=== PATIENT | male | born 1995 | race African-American/Black ===

== ENCOUNTER 2018-09-03 11:21 | Inpatient (IN) ==
[2018-09-03] MEDS ORDERED: SODIUM CHLORIDE 0.9% 1000ML 1,000 ML IV SCH ×2 (11:59→14:15)
--- NOTE | 2018-09-03 12:08 | Emergency Department Note ---
History of Present Illness General Chief complaint: Flank Pain Stated complaint: STOMACH PAIN ON THE LOWER RIGHT Time Seen by Provider: 09/03/18 11:44 History of Present Illness Maximum Pain Intensity: 6 Patient is a generally healthy 22-year-old male who presents the emergency department for evaluation of right lower quadrant abdominal pain x2 to 3 days. He states the pain started over the weekend, which was tolerable, however the pain markedly worsened this morning. He states the pain is located in the right lower quadrant and does not radiate. He rates his discomfort a 6/10. He states that he has been nauseous and vomited twice today with the increased pain. He denies hematemesis. No fever or chills. His bowel movements have been normal, he denies diarrhea. He reports he has been eating normally through the weekend. He denies any sick contacts. He reports a history of EGD for stomach ulcers. He is a student from [employer], taking classes at [employer] over the summer. He arrived here about one month ago. Home Medications Home Medications Medication Instructions Recorded Confirmed Type No Known Home Medications 09/03/18 09/03/18 History Allergies Allergy/AdvReac Type Severity Reaction Status Date / Time No Known Allergies Allergy Verified 09/03/18 12:18 Past Med/Surg History Medical History Stomach ulcer (Resolved) Surgical History No history of previous surgery (Chronic) History of esophagogastroduodenoscopy (EGD) (Resolved) Social History Current Living Situation: Family current occupational status: student Feels Safe at Home: Yes Smoking Status: Former smoker Review of Systems A total of 10 systems reviewed and were otherwise negative Physical Exam Vital Signs Vital Signs - 24 hr 09/03/18 11:28 09/03/18 14:21 Temperature 36.9 C Temperature Source Oral Sepsis Recent Fever Within 48 Hours No Sepsis New/Unexplained Change in Mental Status No Sepsis Action Taken by Nursing No Action Required Pulse Rate 81 Pulse Rate [Finger] 76 Pulse Strength Normal Respiratory Rate 20 17 Respiratory Effort / Characteristics Non-Labored Spontaneous Respiratory Depth Normal Blood Pressure 155/108 H Blood Pressure [Right Arm] 140/89 Blood Pressure Mean 123 Blood Pressure Mean [Right Arm] 106 Blood Pressure Position Sitting Pulse Oximetry 96 100 Oxygen Delivery Method Room Air Room Air CONSTITUTIONAL: Patient is a well-appearing 22-year-old male who is awake and alert and in no acute distress. EYES: Pupils equal, round, reactive to light and accommodation. EOMs intact without nystagmus. Sclera are anicteric. ENT: Tympanic membranes intact, with normal landmarks. External canals are c lear. Oral and nasopharynx are clear. Mucous membranes are moist, no lesions, tongue and gums appear normal. NECK: Supple without lymphadenopathy. No thyromegaly. No meningeal signs. Full active range of motion without discomfort. CARDIOVASCULAR: Regular rate and rhythm, with normal S1 and S2, no murmur or gallop or rub is heard. Peripheral pulses easily palpable. RESPIRATORY: Breath sounds equal and clear to auscultation without wheezes, rales, or rhonchi heard. Full and equal chest expansion without accessory muscle use or retractions. ABDOMEN: Bowel sounds are present. Abdomen is soft, scaphoid, tender to percussion and palpation in the right lower quadrant with voluntary guarding. No rebound or referred rebound tenderness. INTEGUMENTARY: No lesions or rash, normal skin turgor. LYMPH: No lymphadenopathy. Course The patient was seen and assessed as above. He has no old records at this facility for review. He presents the emergency department for evaluation of right lower quadrant abdominal pain with associated nausea and vomiting that began today. IV lock was initiated. He was offered medication for discomfort and nausea, but declined. He was hydrated with normal saline solution. CBC with differential, CMP, lipase and urinalysis were collected. CT scan of the abdomen pelvis with IV contrast was ordered. The patient laboratory studies revealed a normal white count at 7500, no left shift or bandemia. H&H is normal. Electrolytes are within normal limits. Renal functions are not elevated. Transaminases and lipase are normal. Urine was clear. CT scan of the abdomen and pelvis with IV contrast noted acute uncomplicated appendicitis, with a dilated appendix with mucosal hyperemia measuring 7 mm in diameter. There is no evidence for necrosis, extraluminal gas or adjacent fluid collection. No bowel obstruction. The patient was reassessed. He was made aware of the results of his laboratory studies and his CT scan. Surgical consult was placed. Patient was discussed with Joycelyn Adkins PA-C with General Surgery. Patient will be taken to the OR by Dr. Li. Please refer to surgical H&P for further information. Administered Medications Ioversol (Optiray 320 100ml) 93 ml IV ONCE PRN PRN Reason: Interaction Checking Stop: 09/07/18 13:20 Last Admin: 09/03/18 13:21 Dose: 93 ml Documented by: [id number] Discontinued Medications Sodium Chloride (Nss 1000ml) 1,000 mls @ 999 mls/hr IV .Q1H1M OMAR Stop: 09/03/18 12:59 Last Infusion: 09/03/18 13:28 Dose: 0 mls/hr Documented by: [id number] Admin: 09/03/18 12:17 Dose: 999 mls/hr Documented by: [id number] Cefoxitin Sodium 2,000 mg/ (Dextrose) 60 mls @ 100 mls/hr IV PREOP ONE Stop: 09/03/18 15:05 Last Admin: 09/03/18 14:55 Dose: 100 mls/hr Documented by: [id number] Medical Decision Making Differential Diagnosis Differential diagnoses entertained included UTI, pyelonephritis, renal colic, appendicitis, hernia, shingles, mesenteric adenitis, infectious versus inflammatory colitis/enteritis, musculoskeletal pain, among others. Medical Records Attestation: I reviewed the patient's medical records. Home Medications Current Medication List: was personally reviewed by me Laboratory Data Attestation: I reviewed the patient's lab results. Result diagrams: 09/03/18 12:11 09/03/18 12:11 Lab Results 09/03/18 09/03/18 09/03/18 Range/Units 12:10 12:11 12:11 WBC 7.52 (4.8-10.8) K/uL RBC 5.77 (4.7-6.1) M/uL Hgb 16.0 (14.0-18.0) g/dL Hct 44.5 (42-52) % MCV 77.1 L (80-100) fL MCH 27.7 (25-34) pg MCHC 36.0 (32-36) g/dL RDW Std Deviation 35.9 L (36.4-46.3) fL RDW Coeff of Delbert 12.8 (11.5-14.5) % Plt Count 230 (130-400) K/uL MPV 9.7 (7.4-10.4) fL Immature Gran % (Auto) 0.3 % Neut % (Auto) 65.8 % Lymph % (Auto) 23.8 % [place] % (Auto) 7.4 % Eos % (Auto) 2.4 % Baso % (Auto) 0.3 % Immature Gran # (Auto) 0.02 (0.00-0.02) K/uL Neut # (Auto) 4.95 (1.4-6.5) K/uL Lymph # (Auto) 1.79 (1.2-3.4) K/uL [place] # (Auto) 0.56 (0.11-0.59) K/uL Eos # (Auto) 0.18 (0-0.5) K/uL Baso # (Auto) 0.02 (0-0.2) K/uL Sodium 137 (136-145) mmol/L Potassium 3.6 (3.5-5.1) mmol/L Chloride 102 (98-107) mmol/L Carbon Dioxide 27 (21-32) mmol/L Anion Gap 8.0 (3-11) BUN 13 (7-18) mg/dl Creatinine 0.97 (0.6-1.4) mg/dl Est Cr Clr Drug Dosing 111.7 ml/min Est GFR ( Amer) 127.9 Est GFR (Non-Af Amer) 110.4 BUN/Creatinine Ratio 13.5 (10-20) Glucose 108 H (70-99) mg/dl Calcium 10.2 H (8.5-10.1) mg/dl Total Bilirubin 0.7 (0.2-1) mg/dl AST 18 (15-37) U/L ALT 38 (12-78) U/L Alkaline Phosphatase 77 (45-117) U/L Total Protein 8.2 (6.4-8.2) gm/dl Albumin 4.3 (3.4-5.0) gm/dl Globulin 3.9 (2.5-4.0) gm/dl Albumin/Globulin Ratio 1.1 (0.9-2) Lipase 74 (73-393) U/L Urine Color Yellow Urine Appearance Clear (Clear) Urine pH 8.5 H (4.5-7.5) Ur Specific [place] 1.016 (1.000-1.030) Urine Protein Negative (Negative) Urine Glucose (UA) Negative (Negative) Urine Ketones Negative (Negative) Urine Blood Negative (Negative) Urine Nitrite Negative (Negative) Urine Bilirubin Negative (Negative) Urine Urobilinogen Negative (Negative) Ur Leukocyte Esterase Negative (Negative) Imaging Data Attestation: I personally reviewed and interpreted this imaging study as follows: Radiologist's Impression: CT abd pelvis IV con only CLINICAL HISTORY: 22 years-old Male presenting with RLQ PAIN N/V X 3 DAYS. TECHNIQUE: Multidetector CT of the abdomen and pelvis was performed after the administration of intravenous contrast. IV contrast: 3 mL of Optiray 320. One or more dose lowering techniques were used consistent with the principles of ALARA (as low as reasonably achievable), including automatic exposure control, mA or kV adjustment to individual patient size, and/or use of iterative reconstructi on. COMPARISON: None. CT DOSE (mGy.cm): The estimated cumulative dose is 310.90 mGy.cm. FINDINGS: Rod And Tube Straightener topogram: Unremarkable. Lung bases: Normal heart size. No pericardial or pleural effusion. No focal infiltrate or nodule at the lung bases. Liver: Normal morphology. No liver lesion. Patent hepatic vasculature. Biliary: No intrahepatic or extrahepatic biliary ductal dilatation. Normal gal lbladder. Pancreas: Normal. Spleen: Normal. Adrenal glands: Normal. Kidneys and ureters: Normal. No hydronephrosis. Bladder: Normal. Pelvic organs: Prostate and seminal vesicles normal. Bowel: Dilated appendix with mucosal hyperemia. The appendiceal diameter measures 7 mm. There is periappendiceal fat infiltration greatest at the appendiceal base and midportion. There is no bharath discontinuity of mucosal enhancement to suggest necrosis. No extraluminal gas or adjacent fluid collection. No bowel obstruction. Peritoneal cavity: No free fluid or intraperitoneal gas. Lymph nodes: No enlarged lymph nodes in the abdomen or pelvis. Vasculature: Aorta and IVC patent and normal in caliber. Abdominal wall: Normal. Musculoskeletal: Normal. IMPRESSION: 1. Acute uncomplicated appendicitis. Surgical consultation is necessary. The report will be called/faxed according to standard departmental protocol for a critical finding. Blood Pressure Blood Pressure Findings: Normal blood pressure Blood Pressure Disposition: did not require urgent referral MDM Narrative See ED Course. Impression & Plan Acute appendicitis Discharge Plan Visit Data Chief Complaint: Flank Pain Stated Complaint: STOMACH PAIN ON THE LOWER RIGHT ED Provider: Larry Armstrong ED Midlevel Provider: Chelsea Adame Discharge Problem: Acute appendicitis Patient Disposition: Still a Patient Discharge Instructions Interventions: ED Discharge Assessment Last Done: 09/03/18 14:22 Discharge Problem: Acute appendicitis Qualifiers: Acute appendicitis type: with localized peritonitis Appendicitis gangrene presence: without gangrene Appendicitis perforation presence: without perforation Appendicitis abscess presence: without abscess Qualified Code(s): K35.30 - Acute appendicitis with localized peritonitis, without perforation or gangrene
[2018-09-03 12:23] LABS: Basophils # (auto) 0.02 K/uL (0-0.2); Basophils % (auto) 0.3 %; Eosinophils # (auto) 0.18 K/uL (0-0.5); Eosinophils % (auto) 2.4 %; Hematocrit (blood only) 44.5 % (42-52); Immature Granulocytes # (auto) 0.02 K/uL (0.00-0.02); Immature Granulocytes % (auto) 0.3 %; Lymphocytes # (auto) 1.79 K/uL (1.2-3.4); Lymphocytes % (auto) 23.8 %; Mean Corpuscular Volume 77.1 fL (80-100); Mean Platelet Volume 9.7 fL (7.4-10.4); Monocytes # (auto) 0.56 K/uL (0.11-0.59); Monocytes % (auto) 7.4 %; Neutrophils # (auto) 4.95 K/uL (1.4-6.5); Neutrophils % (auto) 65.8 %; Platelet Count 230 K/uL (130-400); RDW Coefficient of Variation 12.8 % (11.5-14.5); RDW Standard Deviation 35.9 fL (36.4-46.3); Red Blood Count 5.77 M/uL (4.7-6.1); White Blood Count 7.52 K/uL (4.8-10.8)
[2018-09-03 12:24] LABS: Appearance Urine Clear (Clear); Bilirubin Urine Negative (Negative); Blood Urine Negative (Negative); Color Urine Yellow; Glucose Urine UA Negative (Negative); Ketones Urine Negative (Negative); Leukocyte Esterase Urine Negative (Negative); Nitrite Urine Negative (Negative); Protein Urine Negative (Negative); Specific Gravity Urine 1.016 (1.000-1.030); Urobilinogen Urine Negative (Negative); pH Urine 8.5 (4.5-7.5)
[2018-09-03 12:41] LABS: Albumin Level 4.3 gm/dl (3.4-5.0); BUN Creatinine Ratio 13.5 (10-20); Calcium 10.2 mg/dl (8.5-10.1); Creatinine Clr Calc Pharmacy 111.7 ml/min; Est GFR (African American) 127.9; Est GFR (Non-African American) 110.4; Potassium 3.6 mmol/L (3.5-5.1)
[2018-09-03 12:46] LABS: Albumin Globulin Ratio 1.1 (0.9-2); Bilirubin,Total 0.7 mg/dl (0.2-1); Globulin 3.9 gm/dl (2.5-4.0); Total Protein 8.2 gm/dl (6.4-8.2)
[2018-09-03] MEDS ORDERED: IOVERSOL 100ml IV PRN (13:21)
--- NOTE | 2018-09-03 13:36 | CT Scan Report ---
CT abd pelvis IV con only CLINICAL HISTORY: 22 years-old Male presenting with RLQ PAIN N/V X 3 DAYS. TECHNIQUE: Multidetector CT of the abdomen and pelvis was performed after the administration of intra venous contrast. IV contrast: 3 mL of Optiray 320. One or more dose lowering techniques were used con sistent with the principles of ALARA (as low as reasonably achievable), including automatic exposure control, mA or kV adjustment to individual patient size, and/or use of iterative reconstruction. COMPARISON: None. CT DOSE (mGy.cm): The estimated cumulative dose is 310.90 mGy.cm. FINDINGS: Sealer Aircraft topogram: Unremarkable. Lung bases: Normal heart size. No pericardial or pleural effusion. No focal infiltrate or nodule at t he lung bases. Liver: Normal morphology. No liver lesion. Patent hepatic vasculature. Biliary: No intrahepatic or extrahepatic biliary ductal dilatation. Normal gallbladder. Pancreas: Normal. Spleen: Normal. Adrenal glands: Normal. Kidneys and ureters: Normal. No hydronephrosis. Bladder: Normal. Pelvic organs: Prostate and seminal vesicles normal. Bowel: Dilated appendix with mucosal hyperemia. The appendiceal diameter measures 7 mm. There is kate appendiceal fat infiltration greatest at the appendiceal base and midportion. There is no bharath disco ntinuity of mucosal enhancement to suggest necrosis. No extraluminal gas or adjacent fluid collection . No bowel obstruction. Peritoneal cavity: No free fluid or intraperitoneal gas. Lymph nodes: No enlarged lymph nodes in the abdomen or pelvis. Vasculature: Aorta and IVC patent and normal in caliber. Abdominal wall: Normal. Musculoskeletal: Normal. IMPRESSION: 1. Acute uncomplicated appendicitis. Surgical consultation is necessary. The report will be called/faxed according to standard departmental protocol for a critical finding. Electronically signed by: Jaxon Griffith M.D. 09/03/2018 1:35 PM
--- NOTE | 2018-09-03 14:08 | History & Physical Report ---
Date of Service September 03, 2018 Assessment & Plan (1) Acute appendicitis: Pt is a 22 yo male who presents with acute appendicitis based on clinical history and physical as well as CT scan. Discussed treatment options, including antibiotics alone vs antibiotics and appendectomy. Discussed risks and benefits of these options. Decision was made to proceed with surgery. - Admit to General Surgery - OR today for laparoscopic, possible open, appendectomy, possible bowel resection - Analgesia: Tylenol and Ibuprofen; Oxy IR PRN - Incentive Spirometry - Diet: NPO for OR, possible advance post-op - Nausea: Zofran PRN - GI ppx: given history of gastric ulcer, if patient is not started on a diet p ost-op will need prophylaxis - IVF: NSS@ 100 ml/hr - Antibiotics: Cefoxitin - DVT/PE ppx: TEDS, SCDs; start Lovenox post-op - Activity: OOB, Ambulate Risks, benefits, goals, complications, post-op expectations, limitations, and alternatives were discussed with patient. Risks include, but are not limited to, pain, scarring, bleeding and associated problems, infection, heart attack, breathing problems including required intubation post-operatively, stroke, blood clots including deep vein thrombosis and pulmonary embolism, injury to surrounding tissues or organs, , need for additional procedures, injury to bladder, abscess formation, staple line leak, anastomotic leak, and hernia. All questions were answered to apparent satisfaction and the patient freely signed consent. Present on Admission?: Yes History of Present Illness Chief Complaint: Abdominal Pain Primary Care Provider: NO PCP Corazon Hutchison is a 22 yo male who presents with a two day history of right lower quadrant abdominal pain. Pain is unchanged in location, but worsened today. He also had two episodes of emesis today. Denies fever and chills. Denies any prior similar symptoms. Denies prior surgical history. He has a history of peptic ulcers diagnosed on EGD, and states most recent treatment was in 2016. Allergies Allergy/AdvReac Type Severity Reaction Status Date / Time No Known Allergies Allergy Verified 09/03/18 12:18 Home Medications Home Medications Medication Instructions Recorded Confirmed Type No Known Home Medications 09/03/18 09/03/18 History Past Med/Surg History Medical History Stomach ulcer (Resolved) Surgical History No history of previous surgery (Chronic) History of esophagogastroduodenoscopy (EGD) (Resolved) Social History Feels Safe at Home: Yes Smoking Status: Former smoker Review of Systems Constitutional: no fever, no chills, no sweats and no weakness Eyes: no eye pain no change in vision Ear, Nose, Mouth, Throat: no ear pain, no ear discharge, no dizziness, no nasal congestion, no nasal discharge and no sore throat Respiratory: no cough and no dyspnea Cardiovascular: no chest pain, no dyspnea on exertion and no palpitations Gastrointestinal: + abdominal pain and + vomiting see HPI Genitourinary: no dysuria, no urinary frequency, no urinary hesitancy and no urinary incontinence Musculoskeletal: no back pain and no joint pain Integumentary: no rash Physical Exam Constitutional: well developed and well nourished; no acute distress Eyes: PERRL, conjunctivae normal, anicteric sclerae ENMT: external ear and nose normal, oropharynx normal Neck: normal visual inspection Respiratory: normal respiratory effort Cardiovascular: Rate/Rhythm: regular rate and regular rhythm Gastrointestinal (Abdomen): Soft, non-distended, RLQ tenderness, no rebound or guarding Musculoskeletal: Head/Neck/Chest: normocephalic and head atraumatic no edema Skin: no rashes, warm and dry Neurologic: alert Results & Data Vital Signs (Past 12 Hours) Vital Signs Temp Pulse Resp BP Pulse Ox 09/03/18 11:28 36.9 C 81 20 155/108 H 96 Laboratory Results 09/03/18 09/03/18 09/03/18 Range/Units 12:11 12:11 12:10 WBC 7.52 (4.8-10.8) K/uL RBC 5.77 (4.7-6.1) M/uL Hgb 16.0 (14.0-18.0) g/dL Hct 44.5 (42-52) % MCV 77.1 L (80-100) fL MCH 27.7 (25-34) pg MCHC 36.0 (32-36) g/dL RDW Std Deviation 35.9 L (36.4-46.3) fL RDW Coeff of Delbert 12.8 (11.5-14.5) % Plt Count 230 (130-400) K/uL MPV 9.7 (7.4-10.4) fL Immature Gran % (Auto) 0.3 % Neut % (Auto) 65.8 % Lymph % (Auto) 23.8 % [place] % (Auto) 7.4 % Eos % (Auto) 2.4 % Baso % (Auto) 0.3 % Immature Gran # (Auto) 0.02 (0.00-0.02) K/uL Neut # (Auto) 4.95 (1.4-6.5) K/uL Lymph # (Auto) 1.79 (1.2-3.4) K/uL [place] # (Auto) 0.56 (0.11-0.59) K/uL Eos # (Auto) 0.18 (0-0.5) K/uL Baso # (Auto) 0.02 (0-0.2) K/uL Sodium 137 (136-145) mmol/L Potassium 3.6 (3.5-5.1) mmol/L Chloride 102 (98-107) mmol/L Carbon Dioxide 27 (21-32) mmol/L Anion Gap 8.0 (3-11) BUN 13 (7-18) mg/dl Creatinine 0.97 (0.6-1.4) mg/dl Est Cr Clr Drug Dosing 111.7 ml/min Est GFR ( Amer) 127.9 Est GFR (Non-Af Amer) 110.4 BUN/Creatinine Ratio 13.5 (10-20) Glucose 108 H (70-99) mg/dl Calcium 10.2 H (8.5-10.1) mg/dl Total Bilirubin 0.7 (0.2-1) mg/dl AST 18 (15-37) U/L ALT 38 (12-78) U/L Alkaline Phosphatase 77 (45-117) U/L Total Protein 8.2 (6.4-8.2) gm/dl Albumin 4.3 (3.4-5.0) gm/dl Globulin 3.9 (2.5-4.0) gm/dl Albumin/Globulin Ratio 1.1 (0.9-2) Lipase 74 (73-393) U/L Urine Color Yellow Urine Appearance Clear (Clear) Urine pH 8.5 H (4.5-7.5) Ur Specific [place] 1.016 (1.000-1.030) Urine Protein Negative (Negative) Urine Glucose (UA) Negative (Negative) Urine Ketones Negative (Negative) Urine Blood Negative (Negative) Urine Nitrite Negative (Negative) Urine Bilirubin Negative (Negative) Urine Urobilinogen Negative (Negative) Ur Leukocyte Esterase Negative (Negative) Diagnostic Findings (09/03/18) CT Abdomen/Pelvis: FINDINGS: Set Up Worker topogram: Unremarkable. Lung bases: Normal heart size. No pericardial or pleural effusion. No focal infiltrate or nodule at the lung bases. Liver: Normal morphology. No liver lesion. Patent hepatic vasculature. Biliary: No intrahepatic or extrahepatic biliary ductal dilatation. Normal gallbladder. Pancreas: Normal. Spleen: Normal. Adrenal glands: Normal. Kidneys and ureters: Normal. No hydronephrosis. Bladder: Normal. Pelvic organs: Prostate and seminal vesicles normal. Bowel: Dilated appendix with mucosal hyperemia. The appendiceal diameter measures 7 mm. There is periappendiceal fat infiltration greatest at the appendiceal base and midportion. There is no bharath discontinuity of mucosal enhancement to suggest necrosis. No extraluminal gas or adjacent fluid collection. No bowel obstruction. Peritoneal cavity: No free fluid or intraperitoneal gas. Lymph nodes: No enlarged lymph nodes in the abdomen or pelvis. Vasculature: Aorta and IVC patent and normal in caliber. Abdominal wall: Normal. Musculoskeletal: Normal. IMPRESSION: 1. Acute uncomplicated appendicitis. Surgical consultation is necessary. (1) Acute appendicitis Acute appendicitis type: with localized peritonitis Appendicitis abscess presence: without abscess Appendicitis gangrene presence: without gangrene Appendicitis perforation presence: without perforation Qualified Code(s): K35.30 - Acute appendicitis with localized peritonitis, without perforation or gangrene
[2018-09-03] MEDS ORDERED: OXYCODONE HCL IR 5 MG TAB (IMMEDIATE RELEASE) PO PRN ×2 (14:11)
[2018-09-03] MEDS ORDERED: ACETAMINOPHEN 325 MG TAB PO PRN (14:11)
[2018-09-03] MEDS ORDERED: HYDROmorphone INJ 1 MG/ML SYRINGE IV PRN ×3 (14:11→15:08)
[2018-09-03] MEDS ORDERED: ONDANSETRON INJ 2 MG/ML 2 ML VIAL IV PRN ×3 (14:11→15:08)
[2018-09-03] MEDS ORDERED: fentaNYL citrate 100 MCG/2 ML VIAL IV PRN ×2 (14:13→15:08)
[2018-09-03] MEDS ORDERED: ATROPINE SULFATE 0.1 MG/ML 10ML SYR IV PRN ×2 (14:13→15:08)
[2018-09-03] MEDS ORDERED: ePHEDrine sulfate 50 MG/ML AMP IV PRN ×2 (14:13→15:08)
--- NOTE | 2018-09-03 14:14 | Anesthesiology Consultation ---
Date of Service September 03, 2018 History Surgery Operation Date: 09/03/18 11:30 Proposed Procedures p Laparoscopic Appendectomy - Wandy Adamson MD Height/Weight Height: 5 ft 7 in Weight: 77.3 kg Allergies Allergy/AdvReac Type Severity Reaction Status Date / Time No Known Allergies Allergy Verified 09/03/18 12:18 Medications Home Medications Medication Instructions Recorded Confirmed Last Taken No Known Home Medications 09/03/18 09/03/18 Unknown Active Medications Generic Name Dose Route Start Last Admin Trade Name Freq PRN Reason Stop Dose Admin Ioversol 93 ml 09/03/18 13:21 09/03/18 13:21 Optiray 320 100ml IV 09/07/18 13:20 93 ml ONCE PRN Administration Interaction Checking Past Medical History Medical History Stomach ulcer (Resolved) Past Surgical History Surgical History No history of previous surgery (Chronic) History of esophagogastroduodenoscopy (EGD) (Resolved) Past Anesthesia History No Hx of Anesthesia Complications and No Family Hx of Anesthesia Complications History of PONV No Hx of PONV and No Hx of Motion Sickness Social History Smoking Status: Former smoker Physical Exam Vital Signs Last Vital Signs Temp 36.9 C 09/03/18 11:28 Pulse 81 09/03/18 11:28 Resp 20 09/03/18 11:28 BP 155/108 H 09/03/18 11:28 Pulse Ox 96 09/03/18 11:28
[2018-09-03] MEDS ORDERED: SUCCINYLCHOLINE CHLORIDE 20 MG/ML 10 ML VIAL ONE (14:16)
[2018-09-03] MEDS ORDERED: GLYCOPYRROLATE 0.2 MG/ML VIAL ONE (14:16)
[2018-09-03] MEDS ORDERED: DEXAMETHASONE SOD INJ 4 MG/ML VIAL ONE (14:16)
[2018-09-03] MEDS ORDERED: ROCURONIUM BROMIDE 10 MG/ML 5 ML VIAL ONE (14:16)
[2018-09-03] MEDS ORDERED: MIDAZOLAM HCL 1 MG/ML 2ML VIAL ONE (14:16)
[2018-09-03] MEDS ORDERED: LIDOCAINE HCL 2% 2 ML VIAL/AMP(20MG/ML) INFIL ONE (14:16)
[2018-09-03] MEDS ORDERED: NEOSTIGMINE METHYLSULFATE 5 MG/5 ML SYR ONE (14:16)
[2018-09-03] MEDS ORDERED: ONDANSETRON INJ 2 MG/ML 2 ML VIAL ONE (14:16)
[2018-09-03] MEDS ORDERED: PROPOFOL IV EMULSION 10 MG/ML 20 ML VIAL IV ONE (14:16)
[2018-09-03] MEDS ORDERED: fentaNYL citrate 100 MCG/2 ML VIAL ONE ×3 (14:17→15:16)
[2018-09-03] MEDS ORDERED: cefOXitin 2,000 MG in DEXTROSE 5% 50 ML IV ONE (14:30)
[2018-09-03] MEDS ORDERED: SODIUM CHLORIDE 0.9% 10ML FLUSH IV ONE (14:31)
[2018-09-03] MEDS ORDERED: ATROPINE SULFATE 0.1 MG/ML 10ML SYR IV ONE (14:31)
[2018-09-03] MEDS ORDERED: BUPIVACAINE 0.25% 30 ML VIAL ONE (14:39)
[2018-09-03] MEDS ORDERED: EPINEPHrine INJ 1 MG/ML AMP ONE (14:39)
[2018-09-03] MEDS ORDERED: PROMETHAZINE HCL 12.5 MG in SODIUM CHLORIDE 0.9% 50 ML IV PRN (15:08)
[2018-09-03] MEDS ORDERED: ESMOLOL HCL INJ 10 MG/ML 10ML VIAL IV ONE (15:30)
--- NOTE | 2018-09-03 16:32 | Post Operative Brief Note ---
Immediate Post Op Note v1 Date of Surgery September 03, 2018 Pre & Post Diagnosis Operation Date: 09/03/18 11:30 Pre-Op Diagnosis: Acute Appendicitis Post-Op Diagnosis: Acute Appendicitis Procedure Operation Date: 09/03/18 11:30 Actual Procedures p Laparoscopic Appendectomy(Not Applicable) - Wandy Adamson MD Surgeon Wandy Adamson MD Spareribs Trimmer Joycelyn Adkins PA-C Estimated Blood Loss 25 Findings See Below Inflamed appendix with filmy adhesions, small amount of free fluid Fluids 1400 ml Crystalloid 600 ml Urine Specimens Appendix to Pathology Drains Dickerson Catheter (A 16 [place] dickerson catheter was inserted by Jennifer Melvin RN, without difficulty, clear yellow urine obtained, output to be monitored by Anesthesia.) Anesthesia Type General Complications none
--- NOTE | 2018-09-03 16:33 | Operative Report ---
Post Operative Report Pre & Post Diagnosis Operation Date: 09/03/18 11:30 Pre-Op Diagnosis: Acute Appendicitis Post-Op Diagnosis: Acute Appendicitis Procedure Operation Date: 09/03/18 11:30 Actual Procedures p Laparoscopic Appendectomy(Not Applicable) - Wandy Adamson MD Surgeon Wandy Adamson MD Neonatal Specialist Joycelyn Adkins PA-C Estimated Blood Loss 25 Findings See Below Inflamed appendix with filmy adhesions, small amount of free fluid Fluids 1400 ml Crystalloid 600 ml Urine Specimens Appendix to Pathology Anesthesia Type General Complications none Description of Procedure History and Indications: The patient is a 22 year old male who presented with acute appendicitis. Various treatment options were discussed with the patient including treatment with antibiotics alone, antibiotics with immediate appendectomy, and antibiotics with plan for interval appendectomy. Decision was made to proceed with a laparoscopic, possible open, appendectomy, possible bowel resection. Risks, benefits, goals, complications, post-op expectations, limitations, and alternatives were discussed withthe patient and family. Risks include, but are not limited to, pain, scarring, bleeding and associated problems, infection, heart attack, breathing problems including required intubation post-operatively, stroke, blood clots including deep vein thrombosis and pulmonary embolism, injury to surrounding tissues or organs, , need for additional procedures,hernia, leak from staple line, anastomotic leak, injury to bowel and bladder. All questions were answered to apparent satisfaction andthe patientfreely signed consent. Description of Procedure: The patient was taken to the operating room and placed in the supine position. General anesthesia was induced.A dickerson was placed. The patient was prepped and draped in the usual sterile fashion.A timeout washeld confirming the correct patient, procedure, specimens, and necessary equipment.An incision was made below the umbilicus.This was carried down through the perperitoneal fat with electrocautery. Care was taken to ensure there were no adhesions surrounding the entry site.Entry into the peritoneum was confirmed visually and no bowel was noted in the vicinity of the incision. The Dangelo cannula was inserted. The abdomen was insufflated with carbon dioxide. The patient tolerated insufflation well. The laparoscope was inserted and the abdomen inspected. No injuries from initial trocar placement were noted. The patient was placed in Trendelenburg and tilted slightly to the left. Additional trocars were then inserted in the following locations: a 5 mm trocar in thelower midline, with care to avoid injury to the bladder,anda5 mm trocartriangulated in the LLQ. The abdomen was inspected andthere were no inj uries noted from initial trocar placement.The appendix was inflamed and had significant filmy adhesions to the lateral abdominal wall and the cecum. The appendix was mobilized from the pelvis. Inflammatory tissue was dissected free using the harmonic scalpel to mobilize the appendix. The mesoappendix was then sealed and divided with a harmonic scalpel. The base of the appendix was transected with a blue load on the Endo DEBRA stapler. The appendix was placed in anendoscopic retrieval bag. Hemostasis was ensured. The staple line was visualized and was intact. The abdomen was thoroughly irrigated. Secondary trocars were removed under direct visualization. No bleeding was noted.The laparsocope and Dangelo cannula were withdrawn. The specimenswithin theendoscopic retrieval bagwasremoved from the peritoneal cavity and sent to Pathology. A safety pause was held confirming specimens. A drain was placed in the right lower quadrant. The fascia of the midline Dangelo trocar site was close d with a [id number] 0 vicryl suture and two interrupted 0 vycril sutures. The skin was closed with subcuticular sutures of 4-0 Monocryl and Dermabond was applied to the incisions. All counts were reported as correct. Thefoleywas removed. The patient was extubated and transferred to the recovery areain stable condition. I attest to the content of the Intraoperative Record and any orders documented therein. Any exceptions are noted below.
[2018-09-03] MEDS ORDERED: PROPOFOL IV EMULSION 10 MG/ML 100 ML VIAL IV ONE ×2 (17:15→18:57)
[2018-09-03 17:43] LABS: iSTAT Allen Test Pass; iSTAT Arterial Blood Gas HCO3 23 meg/L (19-24); iSTAT Carbon Dioxide 25 mEq/l (24-31); iSTAT Site L Radial
--- NOTE | 2018-09-03 17:47 | XRay Report ---
SINGLE VIEW CHEST CLINICAL HISTORY: Hypoxia. Respiratory failure. FINDINGS: An AP, portable, upright chest radiograph is obtained. No prior studies are available for c omparison at the time of dictation. The examination is degraded by portable technique and patient rot ation. An enteric tube has been placed. The tip projects below the diaphragm over the stomach. An end otracheal tube has been placed. The tip terminates 1.8 cm above the nasima. The cardiomediastinal edy houette is unremarkable. Patchy airspace consolidation is seen throughout the right lung. Airspace co nsolidation is also seen in the left upper lung. Small pleural effusions are noted. No pneumothorax i s seen. The bony thorax is grossly intact. IMPRESSION: 1. Endotracheal and enteric tubes have been placed as detailed above. 2. There is multifocal bilateral airspace consolidation, right greater than left. Correlate clinicall y for evidence of pneumonia/aspiration pneumonitis or less likely pulmonary edema. Radiographic follo w-up to resolution is recommended. 3. Small pleural effusions. Electronically signed by: Kj Hou M.D. 09/03/2018 5:45 PM
--- NOTE | 2018-09-03 17:53 | Anesthesiology Progress Note ---
Date of Service September 03, 2018 Subjective Upon arrival to the PACU (1648) the patient was noticed to be hypoxic. Pt immediately ventilated via ambu bag (0). Pulse was present although pt was bradycardic. Dr Zamudio called and responded promptly. Oral airway and subsequently nasal airway placed to help facilitate ventilation. Pt was extubated in the OR after meeting criteria of head lift sustained ventilation and eye opening. Pt was also thoroughly suctioned, as he presented with a large amount of oral secretions. A bite block was also used at the end of the case but was removed before transport to the PACU. Inthe PACU after O2Sats improved pt began to cough up copious amounts of frothy sputum. Decision made by Dr Zamudio to intubate. A DVL was done with mac #3 that resulted in an esophageal intubation by Dr Zamudio. Then a glidescope was used and a 7.5 ett was placed. The intubation was done after Propofol and IV Succinylcholine. A CXR was ordered, the pt was given IV Lasix. Respiratory and ICU mold presser were called and responded. IV team called to place another IV. A OGT was placed by ELECTRIC WELDER HELPER to empty stomach. Pt placed on ventilator by RT. IV sedation (propofol drip) was also started by the anesthesia team. At the time I left the bedside pt was clinically stable and care was assumed by PACU, awaiting transport to the ICU. Physical Exam Vital Signs: Last Vital Signs Temp 36.9 C 09/03/18 11:28 Pulse 100 H 09/03/18 15:36 Resp 20 09/03/18 15:36 BP 140/89 09/03/18 14:21 Pulse Ox 97 09/03/18 15:36 Results & Data Medications Administered Ioversol (Optiray 320 100ml) 93 ml IV ONCE PRN PRN Reason: Interaction Checking Stop: 09/07/18 13:20 Last Admin: 09/03/18 13:21 Dose: 93 ml Documented by: [id number]
[2018-09-03] MEDS ORDERED: ICU PROTOCOL FOR HYPERGLYCEMIA PRN (18:58)
[2018-09-03] MEDS ORDERED: PROPOFOL 1,000 MG/100 ML VIAL IV STA (18:58)
--- NOTE | 2018-09-03 18:58 | Critical Care Consultation ---
Date of Consultation September 03, 2018 Assessment & Plan (1) Admitted to intensive care unit: Reason Critically Ill: 22-year-old male with acute pulmonary edema s/p GET required during laparoscopic appendectomy. NEURO - * CAM ICU: NEGATIVE * Sedated on propofol. * Following commands. Nods his head to yes/no questions. CARDIAC/VASCULAR - * No history of cardiovascular disease. * Will trend troponins and check EKGs in the setting of new onset of florid pulmonary edema with concerns for possible cardiogenic source. * Will hold on echo at this time as patient is maintaining pressures and improving from presentation. * EKG: NSR@77bpm. No ST/T-wave changes. QTc 402ms * Monitor on telemetry. RESPIRATORY - * Negative pressure/flash pulmonary edema status post extubation from general anesthesia procedure. * Currently uncertain of etiology. Must consider possible underlying conditions including hereditary that may contribute. * Has shown improvement to this point. * Oxygenating well. * Blood gases improved. * Will wean down FiO2. * Plan for early extubation. GI/NUTRITION - * N.p.o. at this time. * Prophylaxis: None at this time. RENAL/LYTES - * No significant electrolyte derangements. * IVF: Normosol@100mL/hr - * Archibald in place - Strict I&Os. ENDO - * No h/o DM or Thyroid Dz * BSGs per unit protocol. ISS --> gtt per unit policy. HEME - * Stable H&H * Will repeat in the AM s/p surgery. ID - * No c/o infectious contribution at this time. LINES/IV ACCESS - * PIVs x2 * Radial A-line * Archibald * ET tube DVT PROPHYLAXIS - * Heparin sq * SCDs I have personally spent 35 minutes of critical care time in the direct management of this patient. This is a life/limb threatening event. This includes time spent evaluating patient, direct bedside care, chart review, placing orders, interpretation of diagnostic studies, discussion with consultants, patient, and family members, as well as other required patient management activities. This time is exclusive of all separately billable procedures, and teaching time and separate from and in addition to any other critical care service time. Thank you for allowing us to participate in the care of this patient. Please refer to my attending physician's documentation for any further recommendations. (2) Pulmonary edema, postoperative: (3) Acute appendicitis: (4) S/P laparoscopic appendectomy: Supervising Physician Co-Signing Physician Notes I evaluated the patient at [id number]. Patient has flash pulmonary/negative pressure pulmonary edema most likely from extubation. He was reintubated for acute hypoxic respiratory failure and postoperative respiratory insufficiency. We will continue to wean the ventilator requirements overnight and anticipate extubation hopefully tomorrow morning. I have personally spent 60 minutes of critical care time in the direct m anagement of this patient. This is a life/limb threatening event. This includes time spent evaluating patient, direct bedside care, chart review, placing orders, interpretation of diagnostic studies, discussion with consultants, patient, and/or family members regarding treatment decisions, as well as other required patient management activities. This time is exclusive of all separately billable procedures, and teaching time and separate from and in addition to any other critical care service time. History of Present Illness Attending Physician: Bernardonicko JarrodJohanna Valery Patient is a 22-year-old male with no reported significant past medical history who underwent laparoscopic appendectomy today in the setting of acute ap pendicitis. His procedure was uncomplicated, but in the PACU, the patient was noted to be hypoxic and bradycardic. He was suctioned for pink frothy sputum with concerns for acute pulmonary edema. He was successfully reintubated and placed on the ventilator. His O2 saturations quickly improved. He was transferred to the ICU in stable condition with ET tube in place. History of present illness limited secondary to patient's current state of sedation with endotracheal intubation. Allergies Allergy/AdvReac Type Severity Reaction Status Date / Time No Known Allergies Allergy Verified 09/03/18 12:18 Home Medications Home Medications Medication Instructions Recorded Confirmed Type No Known Home Medications 09/03/18 09/03/18 History oxycodone 5 mg PO Q4H PRN #15 tab 09/05/18 Rx Patient History Medical History Stomach ulcer (Resolved) Surgical History No history of previous surgery (Chronic) History of esophagogastroduodenoscopy (EGD) (Resolved) Social History Preferred Language: Setswana Communication Ability: Effective Behavioral Interventionist Required: No Beliefs That Will Affect Care: None Current Living Situation: Family current occupational status: student Feels Safe at Home: Yes Smoking Status: Never smoker Do You Dip or Chew Tobacco: No Second Hand Exposure: No Hx Alcohol Use: Yes Alcohol type: beer Hx Substance Use: No Review of Systems Review of Systems: Unobtainable due to endotracheal tube and Unobtainable due to reduced consciousness Physical Exam Physical Exam: VITAL SIGNS - Vital signs and nursing notes were reviewed. GENERAL - 22-year-old male appearing his stated age who is in no acute distress. Intubated and sedated. SKIN - Without rashes. Well closed trochar sites noted. HEAD - NC/AT. EYES - PERRL with EOMI bilaterally. Sclera anicteric. EARS - No deformities of external structures noted on gross examination bilaterally. NOSE - Midline and without cyanosis. No epistaxis or purulent drainage noted. MOUTH/OROPHARYNX - ET Tube in place. Without perioral cyanosis. Buccal mucosa pink and moist and without leukoplakia. NECK - Neck with FROM. Supple to palpation. LUNGS - Chest wall symmetric without accessory muscle use, intercostals retractions, or central cyanosis. Normal vesicular breath sounds CTA B/L. No wheezes, rales, or rhonchi appreciated. CARDIAC - RRR with S1/S2. No murmur, rubs, or gallops appreciated. ABDOMEN - Abdominal contour flat without pulsations or visible masses. Post-op incision sites noted to be well closed. BS normoactive all four quadrants. No tenderness, palpable masses, hepatosplenomegaly, or ascites noted. EXTREMITIES - No clubbing or peripheral cyanosis. No pretibial edema present. +3/5 radial and dorsalis pedis pulses palpated throughout. NEUROLOGIC - Cranial nerves II through XII grossly intact. Sensory intact to light touch throughout. PSYCH - Patient awakes but sedated. Answers simple yes/no questions. Results & Data Vital Signs (Past 12 Hours) Vital Signs Temp Pulse Pulse Pulse Resp BP BP 09/03/18 18:05 91 H 101/70 09/03/18 17:55 92 H 110/72 09/03/18 17:45 36.7 C 95 H 111/78 09/03/18 17:35 36.7 C 129 H 192/138 H 09/03/18 17:25 36.7 C 94 H 137/94 09/03/18 17:15 36.7 C 103 H 110/70 09/03/18 17:05 36.7 C 112 H 143/120 H 09/03/18 16:55 36.7 C 45 L 171/90 H 09/03/18 15:36 100 H 20 09/03/18 14:21 76 17 140/89 09/03/18 11:28 36.9 C 81 20 155/108 H Pulse Ox 09/03/18 18:05 100 09/03/18 17:55 97 09/03/18 17:45 97 09/03/18 17:35 100 09/03/18 17:25 97 09/03/18 17:15 89 L 09/03/18 17:05 94 09/03/18 16:55 77 L 09/03/18 15:36 97 09/03/18 14:21 100 09/03/18 11:28 96 Critical Care Time Critical Care Time: Yes ([address] Iniguez) Total Critical Care Time: 95 60: Hira 35: Leodan (1) Acute appendicitis Acute appendicitis type: with localized peritonitis Appendicitis abscess presence: without abscess Appendicitis gangrene presence: without gangrene Appendicitis perforation presence: without perforation Qualified Code(s): K35.30 - Acute appendicitis with localized peritonitis, without perforation or gangrene
[2018-09-03] MEDS: NORMOSOL-R 1,000 ML IV SCH (19:26)
[2018-09-03 19:47] LABS: Eosinophils # (auto) 0.01 K/uL (0-0.5); Eosinophils % (auto) 0.1 %; Hematocrit (blood only) 44.1 % (42-52); Hemoglobin 15.8 g/dL (14.0-18.0); Immature Granulocytes # (auto) 0.02 K/uL (0.00-0.02); Immature Granulocytes % (auto) 0.2 %; Lymphocytes # (auto) 0.69 K/uL (1.2-3.4); Lymphocytes % (auto) 8.1 %; Mean Corpuscular Hgb Conc 35.8 g/dL (32-36); Mean Corpuscular Volume 76.7 fL (80-100); Mean Platelet Volume 10.1 fL (7.4-10.4); Monocytes # (auto) 0.26 K/uL (0.11-0.59); Neutrophils # (auto) 7.58 K/uL (1.4-6.5); Neutrophils % (auto) 88.6 %; Platelet Count 209 K/uL (130-400); RDW Coefficient of Variation 12.7 % (11.5-14.5); RDW Standard Deviation 35.3 fL (36.4-46.3); Red Blood Count 5.75 M/uL (4.7-6.1); White Blood Count 8.56 K/uL (4.8-10.8)
--- NOTE | 2018-09-03 19:47 | Anesthesiology Progress Note ---
Date of Service September 03, 2018 Subjective Mr Hutchison is a previously healthy 22 yo male who presented with appendicitis requiring emergent lap appy today. His preoperative and intraoperateive course were uncomplicated. Please see associated anesthetic record for additional detail. At the end of the case, pt was SV with RRR and appropriate TV. He had full head lift and was opening his eyes. He was suctioned and extubated and an oral airway was temporarily placed. Prior to leaving the OR, the oral airway was removed and the patient was transported to the PACU on oxymask with portable oxygen. Immediately on arrival to the PACU at 1650, the CAROUSEL OPERATOR noticed patient was not taking adequate tidal volumes and a pulse oximeter was placed. HR was 58 and o2 sat was reading 5%. This O2 sat was felt to be in accurate, but a new oral airway was placed and the CAROUSEL OPERATOR began bag mask ventilation. I was notified at 1652 and arrived in the PACU at 1653. At that time, the patient's O2 sat was reading around 30% and the patient was in sinus ihsan with a HR in the 30s. I ordered atropine and epi prepared, but at 1655 before either could be administered, the patient's HR had improved to 48 and O2 sats were 77. I assisted with bag mask ventilation and PACU team began preparing for emergent reintubation. The patient was given 0.2 mg of gycopyrolate after the CAROUSEL OPERATOR noted that during extubation the patient had significant oral secretions. Respiratory therapy was called to get a STAT blood gas. Blood gas was significant for a PaO2 in the 90s, CO2 in the 60s and pH of 7.19. By 1705 the patient's HR was 112 and Sp02 was 94%. A nasal trumpet was placed and the oral airway was suctioned, both of which were noted to have pink, frothy secretions. I immediately became concerned that patient was suffering from negative pressure pulmonary edema. He was given 20 mg of IV lasix. When about to reintubate, the patient suddently woke up and began responding to questioning by nodding/shaking his head. He was encouraged to take deep breathes. The patient then sat up and began coughing up profuse amounts of pink frothy fluid. He was emergently reintubated with propofol and succinylcholine, PEEP was set at 8, and radiology was called for a STAT portable chest X-ray. ICU was contacted. A propofol drip was started. Chest X-ray was concerning for pulmonary edema. A second IV was placed by the IV team. The patient's mother was updated by myself and Dr. Adamson. After updating the patient's mother, I returned to the PACU and placed a right radial khang to assist in blood gas monitoring. The patient was noted to be coughing on the ventilator and repeated ETT suctioning was notable for pink, frothy fluid. Throughout this time, the patient was given a total of 2 mg of dilaudid to increase ventilator tolerance. When the patient was resting comfortably and vital signs were stable and appropriate, the patient was transported to the ICU. Report was given by myself to the bedside nurse and Dr. Iniguez. I again met with the patient's mother to review care to date and to provide support. Anesthesia will continue to follow the patient closely during his ICU stay. Physical Exam Vital Signs: Last Vital Signs Temp 36.7 C 09/03/18 17:45 Pulse 91 H 09/03/18 18:05 Resp 20 09/03/18 15:36 BP 101/70 09/03/18 18:05 Pulse Ox 100 09/03/18 18:05 Constitutional: Sedated Respiratory: Intubated, mild crackles at bilateral bases on auscultation. No wheezing. Cardiovascular: Rate/Rhythm: regular rate and regular rhythm Heart Sounds: no murmur Neurologic: moves all extremities Results & Data Diagnostic Findings Portable CXR on 09/03/2018 FINDINGS: An AP, portable, upright chest radiograph is obtained. No prior studies are available for comparison at the time of dictation. The examination is degraded by portable technique and patient rotation. An enteric tube has been placed. The tip projects below the diaphragm over the stomach. An endotracheal tube has been placed. The tip terminates 1.8 cm above the nasima. The cardiomediastinal silhouette is unremarkable. Patchy airspace consolidation is seen throughout the right lung. Airspace consolidation is also seen in the left upper lung. Small pleural effusions are noted. No pneumothorax is seen. The bony thorax is grossly intact. IMPRESSION: 1. Endotracheal and enteric tubes have been placed as detailed above. 2. There is multifocal bilateral airspace consolidation, right greater than left. Correlate clinically for evidence of pneumonia/aspiration pneumonitis or less likely pulmonary edema. Radiographic follow-up to resolution is recommended. 3. Small pleural effusions.
--- NOTE | 2018-09-03 19:53 | Anesthesiology Progress Note ---
Date of Service September 03, 2018 Anesthesia Post Procedure Vital Signs Vital Signs: Temp Pulse Pulse Pulse Resp BP BP 09/03/18 19:30 16 09/03/18 18:05 91 H 101/70 09/03/18 17:55 92 H 110/72 09/03/18 17:45 36.7 C 95 H 111/78 09/03/18 17:35 36.7 C 129 H 192/138 H 09/03/18 17:25 36.7 C 94 H 137/94 09/03/18 17:15 36.7 C 103 H 110/70 09/03/18 17:05 36.7 C 112 H 143/120 H 09/03/18 16:55 36.7 C 45 L 171/90 H 09/03/18 15:36 100 H 20 09/03/18 14:21 76 17 140/89 09/03/18 11:28 36.9 C 81 20 155/108 H Pulse Ox 09/03/18 19:30 09/03/18 18:05 100 09/03/18 17:55 97 09/03/18 17:45 97 09/03/18 17:35 100 09/03/18 17:25 97 09/03/18 17:15 89 L 09/03/18 17:05 94 09/03/18 16:55 77 L 09/03/18 15:36 97 09/03/18 14:21 100 09/03/18 11:28 96 Pain Intensity Right Lower Abdomen: Pain Intensity: 3 Transfer of Care Handoff Completed per policy Notes Mental Status: see notes below Patient Amnestic to Procedure: Yes Nausea / Vomiting: adequately controlled Pain: adequately controlled Airway Patency, RR, SpO2: stable & adequate BP & HR: stable & adequate Hydration State: stable & adequate Anesthetic Complications: see Notes below Notes: Please see accompanying in anesthesia notes to document the patient's post operative course and transfer to the ICU.
--- NOTE | 2018-09-03 19:54 | Procedure Note ---
Procedure Note Date of Service September 03, 2018 Radial arterial line placed in PACU for blood gas monitoring after emergent reintubation for pulmonary edema and respiratory insufficiency. Right wrist prepped with chlorhexidine and draped with sterile towels. 20 G angiocath placed under sterile technique utilizing sterile gloves. Catheter threaded using seldinger technique with return of pulsatile, bright red blood. Site covered with occlusive dressing and taped in place. Waveform consistent with correct arterial placement. After placement, fingers of procedural hand had normal perfusion. Patient tolerated procedure well without complications. Coding
[2018-09-03 19:56] LABS: INR 1.1 (0.9-1.1); Prothrombin Time 10.9 Seconds (9.0-12.0)
[2018-09-03 20:15] LABS: BUN Creatinine Ratio 11.4 (10-20); Calcium 8.7 mg/dl (8.5-10.1); Est GFR (African American) 131.2; Est GFR (Non-African American) 113.2; Potassium 3.9 mmol/L (3.5-5.1)
[2018-09-03 21:09] LABS: Creatine Kinase 156 U/L (39-308); NT Pro B Type Natriuretic Pept 18 pg/ml (0-450)
[2018-09-03 21:15] LABS: iSTAT Allen Test Pass; iSTAT Arterial Blood Gas HCO3 22 meg/L (19-24); iSTAT Carbon Dioxide 23 mEq/l (24-31); iSTAT Site Art Line
[2018-09-03] MEDS: HEPARIN SOD 5,000 UNIT/0.5 ML VIAL SQ SCH (22:31)
[2018-09-03] MEDS: PROPOFOL 1,000 MG/100 ML VIAL IV SCH (23:22)
[2018-09-04] MEDS: HYDROmorphone INJ 1 MG/ML SYRINGE IV PRN ×3 (03:13→10:49)
[2018-09-04] MEDS: PROPOFOL 1,000 MG/100 ML VIAL IV SCH ×2 (03:37→07:47)
[2018-09-04 05:29] LABS: BUN Creatinine Ratio 10.7 (10-20); Calcium 8.7 mg/dl (8.5-10.1); Creatinine Clr Calc Pharmacy 109.4 ml/min; Est GFR (African American) 124.8; Est GFR (Non-African American) 107.7; Magnesium 1.5 mg/dl (1.8-2.4); Potassium 3.4 mmol/L (3.5-5.1)
[2018-09-04] MEDS: NORMOSOL-R 1,000 ML IV SCH ×2 (05:30→10:48)
[2018-09-04 05:35] LABS: Phosphorus 4.1 mg/dl (2.5-4.9); Troponin I 0.025 ng/ml (0-0.045)
[2018-09-04 05:44] LABS: iSTAT Arterial Blood Gas HCO3 25 meg/L (19-24); iSTAT Carbon Dioxide 27 mEq/l (24-31); iSTAT FiO2 40 %; iSTAT Site Art Line
[2018-09-04] MEDS ORDERED: ACETAMINOPHEN 1000 MG/100 ML IV IV STA (05:58)
[2018-09-04] MEDS: POTASSIUM CHLORIDE / WTR 10 MEQ/100 ML PLCT IV SCH ×2 (06:35→07:46)
--- NOTE | 2018-09-04 06:38 | XRay Report ---
XR chest 1V portable HISTORY: 22 years-old Male pulmonary edema/resp failure acute respiratory failure COMPARISON: Chest radiograph 09/03/2018 TECHNIQUE: Portable AP view of the chest FINDINGS: Cardiomediastinal and hilar silhouettes are within normal limits. Endotracheal tube overlies the midl ine, 2.6 cm superior to the nasima. Enteric tube coils about the abdominal left upper quadrant with d istal tip within the region of the gastric cardia. There is no pneumothorax or large pleural effusion . There is improved aeration of the lungs with mild persistent opacity is again noted about the right greater than left upper lung zones and right lung base. Bones appear normal. IMPRESSION: 1. Endotracheal and enteric tube placement as above. 2. Improved aeration of the bilateral lungs with mild persistent right greater than left opacities ag ain noted. 3. No pneumothorax. The above report was generated using voice recognition software. It may contain grammatical, syntax o r spelling errors. Electronically signed by: Aaron Arellano M.D. 09/04/2018 6:37 AM
[2018-09-04] MEDS: MAGNESIUM SULFATE / D5W 1 GM/100 ML BAG IV SCH ×2 (08:43→09:59)
[2018-09-04] MEDS ORDERED: PERFLUTREN LIPID MICROSPHERE (DEFINITY) IV ONE (09:19)
[2018-09-04] MEDS: HEPARIN SOD 5,000 UNIT/0.5 ML VIAL SQ SCH ×2 (09:20→21:20)
--- NOTE | 2018-09-04 09:50 | Critical Care Progress Note ---
Date of Service September 04, 2018 Assessment & Plan (1) Pulmonary edema, postoperative: Reason Critically Ill: 22-year-old male with acute pulmonary edema s/p GET required during laparoscopic appendectomy. NEURO Sedatives weaned off and patient clearly following commands and instructions. He is indicating that he wants to be extubated. Following commands. Nods his head to yes/no questions. CARDIAC/VASCULAR No history of cardiovascular disease. Troponins negative Echo performed this morning showing normal ventricular and valvular function; Does not appear to be contributory to edema EKG: NSR@77bpm. No ST/T-wave changes. QTc 402ms RESPIRATORY Negative pressure/flash pulmonary edema status post extubation from general anesthesia procedure. Currently uncertain of etiology. Must consider possible underlying conditions including hereditary that may contribute. Improved enough to be extubated. Now on nasal cannula and saturating well. Room air when awake and walking nasal cannula when he sleeps. GI/NUTRITION Regular Diet History of gastric ulcers stable at this time Prophylaxis: None at this time. RENAL/LYTES No significant electrolyte derangements. Normosol discontinued Pulled Archibald this afternoon ENDO No h/o DM or Thyroid Dz BSGs per unit protocol. ISS --> gtt per unit policy. HEME Stable H&H ID No c/o infectious contribution at this time. LINES/IV ACCESS PIVs x2 DVT PROPHYLAXIS Heparin sq SCDs (2) Admitted to intensive care unit: (3) S/P laparoscopic appendectomy: (4) No history of previous surgery: Supervising Physician Co-Signing Physician Notes Dr. Cassidy was resident physician during care of patient. I separately evaluated patient for rizvi portions of the history and the exam. I was present during the critical portion of medical decision making, and I discussed the case with the resident. I generally agree with the findings and plan. Echo completed secondary to repeat episode of pulmonary edema this morning while attempting ventilator wean. Patient currently tolerating T-piece trial will proceed with extubation. Cardiac enzymes negative, I discussed the echo with Dr. Loaiza, patient tolerating T-piece proceeding with extubation. Reyes Hutchison is intubated this morning. He is easily rousable and indicates that he is not in any pain but is gesturing to his tube and nodding when we ask if he wants his tube out. Review of Systems Review of Systems: Unobtainable due to endotracheal tube Physical Exam Constitutional: well developed, well nourished, cooperative and comfortable; no acute distress Eyes: PERRL, conjunctivae normal, anicteric sclerae Pupils 2-3 mm reactive and accommodating Respiratory: Intubated, breath sounds present throughout Cardiovascular: RRR, no murmur, no edema Dorsalis pedis pulses present and equal Gastrointestinal (Abdomen): Percussion/Palpation: abdomen soft; abdomen nontender Neurologic: patellar DTR's 2+ bilat, sensation intact moves all extremities Cranial Nerves: PERRL, normal accommodation, EOM intact bilaterally, normal gag reflex, able to rotate head bilaterally and no nystagmus Results & Data Vital Signs (Past 12 Hours) Vital Signs Temp Pulse Pulse Resp BP BP Pulse Ox 09/04/18 04:38 110 H 10 L 99 09/04/18 04:13 37.2 C 09/04/18 02:30 104 H 111/59 L 100 09/04/18 02:00 101 H 106/68 99 09/04/18 01:30 91 H 128/69 100 09/04/18 01:00 37.5 C 107 H 100 09/04/18 00:30 82 111/60 100 09/04/18 00:00 77 114/61 100 09/03/18 23:45 82 16 100 09/03/18 23:30 75 110/62 100 09/03/18 23:00 94 H 121/77 100 09/03/18 22:30 62 119/64 100 09/03/18 22:00 66 116/65 100 09/03/18 21:30 60 112/65 100 09/03/18 21:00 37.2 C 103 H 107/70 100 09/03/18 20:30 72 99/61 L 100 09/03/18 20:00 74 95/57 L 100 09/03/18 19:30 74 16 91/58 L 100 09/03/18 19:00 75 94/56 L 100 09/03/18 18:45 96 H 107/65 97 09/03/18 18:41 99 09/03/18 18:05 91 H 101/70 100 09/03/18 17:55 92 H 110/72 97 09/03/18 17:45 36.7 C 95 H 111/78 97 Resident Activity Tracking Resident Involvement: Resident Care Provided Care Provided: Adult [facility] Medicine
[2018-09-04] MEDS: FAMOTIDINE 20 MG in SYRINGE 3 ML IV SCH ×2 (09:59→21:20)
--- NOTE | 2018-09-04 10:03 | Anesthesiology Progress Note ---
Date of Service September 04, 2018 Anesthesia Post Procedure Vital Signs Vital Signs: Temp Pulse Pulse Pulse Resp BP BP 09/04/18 10:00 120 H 140/58 L 09/04/18 09:30 107 H 140/61 09/04/18 09:00 117 H 132/59 L 09/04/18 08:38 109 H 16 09/04/18 08:30 103 H 118/54 L 09/04/18 08:03 117 H 16 09/04/18 08:00 37.9 C H 103 H 130/59 L 09/04/18 07:30 109 H 115/55 L 09/04/18 07:00 117 H 121/62 09/04/18 06:31 119 H 126/57 L 09/04/18 06:30 116 H 09/04/18 06:00 140 H 147/73 H 09/04/18 05:30 120 H 129/56 L 09/04/18 05:00 120 H 129/55 L 09/04/18 04:38 110 H 10 L 09/04/18 04:30 119 H 123/66 09/04/18 04:13 37.2 C 09/04/18 04:00 106 H 111/63 09/04/18 03:30 108 H 117/65 09/04/18 03:00 98 H 106/64 09/04/18 02:30 104 H 111/59 L 09/04/18 02:00 101 H 106/68 09/04/18 01:30 91 H 128/69 09/04/18 01:00 37.5 C 107 H 09/04/18 00:30 82 111/60 09/04/18 00:00 77 114/61 09/03/18 23:45 82 16 09/03/18 23:30 75 110/62 09/03/18 23:00 94 H 121/77 09/03/18 22:30 62 119/64 09/03/18 22:00 66 116/65 09/03/18 21:30 60 112/65 09/03/18 21:00 37.2 C 103 H 107/70 09/03/18 20:30 72 99/61 L 09/03/18 20:00 74 95/57 L 09/03/18 19:30 74 16 91/58 L 09/03/18 19:00 75 94/56 L 09/03/18 18:45 96 H 107/65 09/03/18 18:41 09/03/18 18:05 91 H 101/70 09/03/18 17:55 92 H 110/72 09/03/18 17:45 36.7 C 95 H 111/78 09/03/18 17:35 36.7 C 129 H 192/138 H 09/03/18 17:25 36.7 C 94 H 137/94 09/03/18 17:15 36.7 C 103 H 110/70 09/03/18 17:05 36.7 C 112 H 143/120 H 09/03/18 16:55 36.7 C 45 L 171/90 H 09/03/18 15:36 100 H 20 09/03/18 14:21 76 17 140/89 Pulse Ox 09/04/18 10:00 100 09/04/18 09:30 100 09/04/18 09:00 100 09/04/18 08:38 100 09/04/18 08:30 99 09/04/18 08:03 100 09/04/18 08:00 100 09/04/18 07:30 99 09/04/18 07:00 100 09/04/18 06:31 100 09/04/18 06:30 100 09/04/18 06:00 100 09/04/18 05:30 99 09/04/18 05:00 99 09/04/18 04:38 99 09/04/18 04:30 100 09/04/18 04:13 09/04/18 04:00 99 09/04/18 03:30 100 09/04/18 03:00 99 09/04/18 02:30 100 09/04/18 02:00 99 09/04/18 01:30 100 09/04/18 01:00 100 09/04/18 00:30 100 09/04/18 00:00 100 09/03/18 23:45 100 09/03/18 23:30 100 09/03/18 23:00 100 09/03/18 22:30 100 09/03/18 22:00 100 09/03/18 21:30 100 09/03/18 21:00 100 09/03/18 20:30 100 09/03/18 20:00 100 09/03/18 19:30 100 09/03/18 19:00 100 09/03/18 18:45 97 09/03/18 18:41 99 09/03/18 18:05 100 09/03/18 17:55 97 09/03/18 17:45 97 09/03/18 17:35 100 09/03/18 17:25 97 09/03/18 17:15 89 L 09/03/18 17:05 94 09/03/18 16:55 77 L 09/03/18 15:36 97 09/03/18 14:21 100 Pain Intensity Right Lower Abdomen: Pain Intensity: 3 Notes Mental Status: alert / awake / arousable Patient Amnestic to Procedure: Yes Nausea / Vomiting: adequately controlled Airway Patency, RR, SpO2: stable & adequate BP & HR: stable & adequate Hydration State: stable & adequate Anesthetic Complications: see Notes below Notes: Patient remains in ICU bed 5 on ventilator, and lightly sedated on propofol. Patient is arousable and appropriate.
[2018-09-04 10:11] LABS: Patient Temperature 37.2; iSTAT Art Bld Gas pCO2 Correct 40 mmHg (35-46); iSTAT Art Bld Gas pH Corrected 7.415 (7.35-7.45); iSTAT Arterial Blood Gas pCO2 39 mmHg (35-46); iSTAT Arterial Blood Gas pH 7.42 (7.35-7.45)
[2018-09-04 10:16] LABS: Patient Temperature 37.1; iSTAT Art Bld Gas pCO2 Correct 33 mmHg (35-46); iSTAT Art Bld Gas pH Corrected 7.432 (7.35-7.45); iSTAT Arterial Blood Gas pCO2 33 mmHg (35-46); iSTAT Arterial Blood Gas pH 7.43 (7.35-7.45)
[2018-09-04 10:20] LABS: iSTAT Art Bld Gas pCO2 Correct 60 mmHg (35-46); iSTAT Art Bld Gas pH Corrected 7.198 (7.35-7.45); iSTAT Arterial Blood Gas pCO2 60 mmHg (35-46); iSTAT Arterial Blood Gas pH 7.19 (7.35-7.45)
[2018-09-04 10:21] LABS: Patient Temperature 36.7
--- NOTE | 2018-09-04 14:01 | Surgery Progress Note ---
Date of Service September 04, 2018 Assessment & Plan (1) Acute appendicitis: POD # 1 s/p laparoscopic appendectomy with post op airway obstruction and pulmonary edema requiring re-intubation and transfer to ICU. Repeat episode of pulmonary edema this morning during extubation attempt. ECHO wnl. CXR today showing improved aeration. Tolerated extubation. Minimal pain. Vitals currently stable. Plan: Continue to monitor in ICU given recent extubation. Plan for swallow evaluation at noon and if tolerates can have regular diet. Plan to remove arterial line at noon if BP remains stable. Continue IV fluids Continue IV pain management with PO Oxycodone as needed Continue IV Zofran as needed discontinue Archibald catheter Incentive spirometry Activity as tolerated SCDs and Heparin for DVT prophylaxis Appreciate electronic warfare specialist consultation and management Dr. Adamson has seen and examined patient, agrees with above. See addendum for further recommendations/plan. Supervising Physician Co-Signing Physician Notes I have seen and evaluated the patient and reviewed the medical record. I agree with the documentation as provided in this note by Joycelyn Adkins PA-C. Since re-intubation post-op the patient's respiratory status has improved under the care of critical care medicine and patient was extubated. Once cleared from a respiratory standpoint, can start the patient on regular diet. Appreciate [facility] recommendations on further respiratory management. Subjective patient gives limited ROS, just extubated about 1 hour ago. Sleepy. Having some mild pain in RLQ otherwise not bad +hungry no nausea or vomiting Per nursing staff patient had repeat pulmonary edema after attempting to wean ventilation this morning. He was placed back on positive pressure ventilation. Had echocardiogram which was normal. Repeat CXR showed improved aeration of bilateral lungs. Tolerated extubation. Physical Exam Constitutional: WD/WN, vitals as above no acute distress Respiratory: normal respiratory effort; no respiratory distress, no labored breathing, no retractions and does not use accessory muscles Gastrointestinal (Abdomen): Inspection/Auscultation: abdomen normal to inspection; abdomen not distended Percussion/Palpation: + abdomen tender (at incision sites and RLQ, expected post op) and abdomen soft; no guarding and abdomen not rigid Skin: no rashes, warm and dry + incision (clean/dry/intact with dermabond) Psychiatric: Orientation: alert and oriented x 3 Results & Data Vital Signs (Past 12 Hours) Vital Signs Temp Pulse Resp BP Pulse Ox 09/04/18 12:01 95 H 15 151/57 H 91 09/04/18 11:30 89 13 133/61 97 09/04/18 11:00 91 H 11 L 132/61 98 09/04/18 10:30 109 H 20 129/52 L 100 09/04/18 10:00 120 H 140/58 L 100 09/04/18 09:30 107 H 140/61 100 09/04/18 09:00 117 H 132/59 L 100 09/04/18 08:38 109 H 16 100 09/04/18 08:30 103 H 118/54 L 99 09/04/18 08:03 117 H 16 100 09/04/18 08:00 37.9 C H 103 H 130/59 L 100 09/04/18 07:30 109 H 115/55 L 99 09/04/18 07:00 117 H 121/62 100 09/04/18 06:31 119 H 126/57 L 100 09/04/18 06:30 116 H 100 09/04/18 06:00 140 H 147/73 H 100 09/04/18 05:30 120 H 129/56 L 99 09/04/18 05:00 120 H 129/55 L 99 09/04/18 04:38 110 H 10 L 99 09/04/18 04:30 119 H 123/66 100 09/04/18 04:13 37.2 C 09/04/18 04:00 106 H 111/63 99 09/04/18 03:30 108 H 117/65 100 09/04/18 03:00 98 H 106/64 99 09/04/18 02:30 104 H 111/59 L 100 09/04/18 02:00 101 H 106/68 99 Laboratory Results 09/04/18 09/04/18 09/04/18 Range/Units 09:23 05:29 04:23 WBC (4.8-10.8) K/uL RBC (4.7-6.1) M/uL Hgb (14.0-18.0) g/dL Hct (42-52) % MCV (80-100) fL MCH (25-34) pg MCHC (32-36) g/dL RDW Std Deviation (36.4-46.3) fL RDW Coeff of Delbert (11.5-14.5) % Plt Count (130-400) K/uL MPV (7.4-10.4) fL Immature Gran % (Auto) % Neut % (Auto) % Lymph % (Auto) % Rose[place] % (Auto) % Eos % (Auto) % Baso % (Auto) % Immature Gran # (Auto) (0.00-0.02) K/uL Neut # (Auto) (1.4-6.5) K/uL Lymph # (Auto) (1.2-3.4) K/uL Rose[place] # (Auto) (0.11-0.59) K/uL Eos # (Auto) (0-0.5) K/uL Baso # (Auto) (0-0.2) K/uL PT (9.0-12.0) Seconds INR (0.9-1.1) Sample Site Art Line Patient Temperature 37.2 POC pH 7.42 (7.35-7.45) POC pCO2 39 (35-46) mmHg POC pO2 129 H (80-95) mmHg POC HCO3 25 H (19-24) kalia/L POC Total CO2 27 (24-31) mEq/l POC Base Excess 1.0 (-9-1.8) kalia/L ABG pH (Temp Correct) 7.415 (7.35-7.45) ABG pCO2 (Temp Corrct 40 (35-46) mmHg POC ABG pO2 at Pt Temp 130 POC ABG O2 Sat 99.0 H (90-95) % Gen Test NA O2 Delivery Device Ventilator POC FiO2 40 % PEEP 5 Sodium 139 (136-145) mmol/L Potassium 3.4 L (3.5-5.1) mmol/L Chloride 107 (98-107) mmol/L Carbon Dioxide 23 (21-32) mmol/L Anion Gap 9.0 (3-11) BUN 11 (7-18) mg/dl Creatinine 0.99 (0.6-1.4) mg/dl Est Cr Clr Drug Dosing 109.4 ml/min Est GFR ( Amer) 124.8 Est GFR (Non-Af Amer) 107.7 BUN/Creatinine Ratio 10.7 (10-20) Glucose 101 H (70-99) mg/dl POC Glucose (70-99) Calcium 8.7 (8.5-10.1) mg/dl Phosphorus 4.1 (2.5-4.9) mg/dl Magnesium 1.5 L (1.8-2.4) mg/dl Total Creatine Kinase (39-308) U/L Troponin I 0.022 0.025 (0-0.045) ng/ml NT-Pro-B Natriuret Pep (0-450) pg/ml Nasal Screen MRSA (PCR) (Negative) 09/04/18 09/03/18 09/03/18 Range/Units 00:54 21:00 20:21 WBC (4.8-10.8) K/uL RBC (4.7-6.1) M/uL Hgb (14.0-18.0) g/dL Hct (42-52) % MCV (80-100) fL MCH (25-34) pg MCHC (32-36) g/dL RDW Std Deviation (36.4-46.3) fL RDW Coeff of Delbert (11.5-14.5) % Plt Count (130-400) K/uL MPV (7.4-10.4) fL Immature Gran % (Auto) % Neut % (Auto) % Lymph % (Auto) % Roseau % (Auto) % Eos % (Auto) % Baso % (Auto) % Immature Gran # (Auto) (0.00-0.02) K/uL Neut # (Auto) (1.4-6.5) K/uL Lymph # (Auto) (1.2-3.4) K/uL Rose[place] # (Auto) (0.11-0.59) K/uL Eos # (Auto) (0-0.5) K/uL Baso # (Auto) (0-0.2) K/uL PT (9.0-12.0) Seconds INR (0.9-1.1) Sample Site Art Line Patient Temperature 37.1 POC pH 7.43 (7.35-7.45) POC pCO2 33 L (35-46) mmHg POC pO2 284 H (80-95) mmHg POC HCO3 22 (19-24) kalia/L POC Total CO2 23 L (24-31) mEq/l POC Base Excess -2.0 (-9-1.8) kalia/L ABG pH (Temp Correct) 7.432 (7.35-7.45) ABG pCO2 (Temp Corrct 33 L (35-46) mmHg POC ABG pO2 at Pt Temp 284 POC ABG O2 Sat 100.0 H (90-95) % Gen Test Pass O2 Delivery Device POC FiO2 % PEEP Sodium (136-145) mmol/L Potassium (3.5-5.1) mmol/L Chloride (98-107) mmol/L Carbon Dioxide (21-32) mmol/L Anion Gap (3-11) BUN (7-18) mg/dl Creatinine (0.6-1.4) mg/dl Est Cr Clr Drug Dosing ml/min Est GFR ( Amer) Est GFR (Non-Af Amer) BUN/Creatinine Ratio (10-20) Glucose (70-99) mg/dl POC Glucose 115 H (70-99) Calcium (8.5-10.1) mg/dl Phosphorus (2.5-4.9) mg/dl Magnesium (1.8-2.4) mg/dl Total Creatine Kinase 156 (39-308) U/L Troponin I (0-0.045) ng/ml NT-Pro-B Natriuret Pep 18 (0-450) pg/ml Nasal Screen MRSA (PCR) (Negative) 09/03/18 09/03/18 09/03/18 Range/Units 20:21 19:26 19:26 WBC (4.8-10.8) K/uL RBC (4.7-6.1) M/uL Hgb (14.0-18.0) g/dL Hct (42-52) % MCV (80-100) fL MCH (25-34) pg MCHC (32-36) g/dL RDW Std Deviation (36.4-46.3) fL RDW Coeff of Delbert (11.5-14.5) % Plt Count (130-400) K/uL MPV (7.4-10.4) fL Immature Gran % (Auto) % Neut % (Auto) % Lymph % (Auto) % Rose[place] % (Auto) % Eos % (Auto) % Baso % (Auto) % Immature Gran # (Auto) (0.00-0.02) K/uL Neut # (Auto) (1.4-6.5) K/uL Lymph # (Auto) (1.2-3.4) K/uL Rose[place] # (Auto) (0.11-0.59) K/uL Eos # (Auto) (0-0.5) K/uL Baso # (Auto) (0-0.2) K/uL PT 10.9 (9.0-12.0) Seconds INR 1.1 (0.9-1.1) Sample Site Patient Temperature POC pH (7.35-7.45) POC pCO2 (35-46) mmHg POC pO2 (80-95) mmHg POC HCO3 (19-24) kalia/L POC Total CO2 (24-31) mEq/l POC Base Excess (-9-1.8) kalia/L ABG pH (Temp Correct) (7.35-7.45) ABG pCO2 (Temp Corrct (35-46) mmHg POC ABG pO2 at Pt Temp POC ABG O2 Sat (90-95) % Gne Test O2 Delivery Device POC FiO2 % PEEP Sodium 138 (136-145) mmol/L Potassium 3.9 (3.5-5.1) mmol/L Chloride 107 (98-107) mmol/L Carbon Dioxide 23 (21-32) mmol/L Anion Gap 8.0 (3-11) BUN 11 (7-18) mg/dl Creatinine 0.95 (0.6-1.4) mg/dl Est Cr Clr Drug Dosing 114.0 ml/min Est GFR ( Amer) 131.2 Est GFR (Non-Af Amer) 113.2 BUN/Creatinine Ratio 11.4 (10-20) Glucose 120 H (70-99) mg/dl POC Glucose (70-99) Calcium 8.7 (8.5-10.1) mg/dl Phosphorus (2.5-4.9) mg/dl Magnesium (1.8-2.4) mg/dl Total Creatine Kinase (39-308) U/L Troponin I 0.035 (0-0.045) ng/ml NT-Pro-B Natriuret Pep (0-450) pg/ml Nasal Screen MRSA (PCR) (Negative) 09/03/18 09/03/18 09/03/18 Range/Units 19:26 18:15 17:07 WBC 8.56 (4.8-10.8) K/uL RBC 5.75 (4.7-6.1) M/uL Hgb 15.8 (14.0-18.0) g/dL Hct 44.1 (42-52) % MCV 76.7 L (80-100) fL MCH 27.5 (25-34) pg MCHC 35.8 (32-36) g/dL RDW Std Deviation 35.3 L (36.4-46.3) fL RDW Coeff of Delbert 12.7 (11.5-14.5) % Plt Count 209 (130-400) K/uL MPV 10.1 (7.4-10.4) fL Immature Gran % (Auto) 0.2 % Neut % (Auto) 88.6 % Lymph % (Auto) 8.1 % Roseau % (Auto) 3.0 % Eos % (Auto) 0.1 % Baso % (Auto) 0.0 % Immature Gran # (Auto) 0.02 (0.00-0.02) K/uL Neut # (Auto) 7.58 H (1.4-6.5) K/uL Lymph # (Auto) 0.69 L (1.2-3.4) K/uL [place] # (Auto) 0.26 (0.11-0.59) K/uL Eos # (Auto) 0.01 (0-0.5) K/uL Baso # (Auto) 0.00 (0-0.2) K/uL PT (9.0-12.0) Seconds INR (0.9-1.1) Sample Site L Radial Patient Temperature 36.7 POC pH 7.19 L* (7.35-7.45) POC pCO2 60 H (35-46) mmHg POC pO2 105 H (80-95) mmHg POC HCO3 23 (19-24) kalia/L POC Total CO2 25 (24-31) mEq/l POC Base Excess -5.0 (-9-1.8) kalia/L ABG pH (Temp Correct) 7.198 L* (7.35-7.45) ABG pCO2 (Temp Corrct 60 H (35-46) mmHg POC ABG pO2 at Pt Temp 103 POC ABG O2 Sat 96.0 H (90-95) % Gen Test Pass O2 Delivery Device POC FiO2 % PEEP Sodium (136-145) mmol/L Potassium (3.5-5.1) mmol/L Chloride (98-107) mmol/L Carbon Dioxide (21-32) mmol/L Anion Gap (3-11) BUN (7-18) mg/dl Creatinine (0.6-1.4) mg/dl Est Cr Clr Drug Dosing ml/min Est GFR ( Amer) Est GFR (Non-Af Amer) BUN/Creatinine Ratio (10-20) Glucose (70-99) mg/dl POC Glucose (70-99) Calcium (8.5-10.1) mg/dl Phosphorus (2.5-4.9) mg/dl Magnesium (1.8-2.4) mg/dl Total Creatine Kinase (39-308) U/L Troponin I (0-0.045) ng/ml NT-Pro-B Natriuret Pep (0-450) pg/ml Nasal Screen MRSA (PCR) Negative (Negative) Diagnostic Findings XR chest 1V portable HISTORY: 22 years-old Male pulmonary edema/resp failure acute respiratory failure COMPARISON: Chest radiograph 09/03/2018 TECHNIQUE: Portable AP view of the chest FINDINGS: Cardiomediastinal and hilar silhouettes are within normal limits. Endotracheal tube overlies the midline, 2.6 cm superior to the nasima. Enteric tube coils about the abdominal left upper quadrant with distal tip within the region of the gastric cardia. There is no pneumothorax or large pleural effusion. There is improved aeration of the lungs with mild persistent opacity is again noted about the right greater than left upper lung zones and right lung base. Bones appear normal. IMPRESSION: 1. Endotracheal and enteric tube placement as above. 2. Improved aeration of the bilateral lungs with mild persistent right greater than left opacities again noted. 3. No pneumothorax. (1) Acute appendicitis Acute appendicitis type: with localized peritonitis Appendicitis abscess presence: without abscess Appendicitis gangrene presence: without gangrene Appendicitis perforation presence: without perforation Qualified Code(s): K35.30 - Acute appendicitis with localized peritonitis, without perforation or gangrene
[2018-09-05 09:23] LABS: Basophils # (auto) 0.02 K/uL (0-0.2); Basophils % (auto) 0.3 %; Eosinophils # (auto) 0.24 K/uL (0-0.5); Hematocrit (blood only) 40.3 % (42-52); Hemoglobin 13.8 g/dL (14.0-18.0); Immature Granulocytes # (auto) 0.03 K/uL (0.00-0.02); Immature Granulocytes % (auto) 0.4 %; Lymphocytes # (auto) 1.94 K/uL (1.2-3.4); Lymphocytes % (auto) 24.5 %; Mean Corpuscular Volume 78.1 fL (80-100); Mean Platelet Volume 9.7 fL (7.4-10.4); Monocytes # (auto) 0.64 K/uL (0.11-0.59); Monocytes % (auto) 8.1 %; Neutrophils # (auto) 5.06 K/uL (1.4-6.5); Neutrophils % (auto) 63.7 %; Platelet Count 187 K/uL (130-400); RDW Standard Deviation 36.9 fL (36.4-46.3); Red Blood Count 5.16 M/uL (4.7-6.1); White Blood Count 7.93 K/uL (4.8-10.8)
[2018-09-05 09:27] LABS: Mean Corpuscular Hgb Conc 34.2 g/dL (32-36)
[2018-09-05] MEDS: HEPARIN SOD 5,000 UNIT/0.5 ML VIAL SQ SCH (09:39)
[2018-09-05] MEDS: FAMOTIDINE 20 MG in SYRINGE 3 ML IV SCH (09:39)
[2018-09-05 09:41] LABS: BUN Creatinine Ratio 10.4 (10-20); Calcium 9.2 mg/dl (8.5-10.1); Creatinine Clr Calc Pharmacy 115.2 ml/min; Est GFR (African American) 132.9; Est GFR (Non-African American) 114.6; Potassium 3.5 mmol/L (3.5-5.1)
--- NOTE | 2018-09-05 19:16 | Progress Note ---
Date of Service September 05, 2018 Assessment & Plan (1) Acute appendicitis: 22 yo male is s/p lap appy for acute appendicitis. - Regular diet - No lifting/pulling/pushing > 10 pounds or strenuous activity x 4 weeks post-op - Okay to shower, no soaking in standing bodies of water for two weeks - Do not expose incisions to direct sunlight while Dermabond in place (details further elaborated in discharge instructions) - f/u in clinic in 1 week - Reviewed discharge instructions with the patient Acute appendicitis type: with localized peritonitis Appendicitis abscess presence: without abscess Appendicitis gangrene presence: without gangrene Appendicitis perforation presence: without perforation Qualified Code(s): K35.30 - Acute appendicitis with localized peritonitis, without perforation or gangrene (2) Pulmonary edema, postoperative: Required re-intubation immediately post-op and developed negative pressure/flash pulmonary edema. Repeat CXR was much improved. Discussed with CCM and also peripherally with Pulmonology. While there is a small possibility of a predisposing small vessel vasculitis or even diffuse alveolar hemorrhage, he is stable and asymptomatic on room air and feel it is safe for discharge - He should f/u with PCP in one week - Extensive education provided and pt instructed to be evaluated immediately in the ED if he develops dyspnea Subjective Pt states he is feel great this morning and ready to go home. He denies any dyspnea and abdominal pain is well controlled. He tolerated a diet. He has been on room air (today has ranged 95-96%, though overnight he did dip to 91%, he remained on room air). Physical Exam Respiratory: normal respiratory effort, lungs clear to auscultation Cardiovascular: Rate/Rhythm: regular rate and regular rhythm Gastrointestinal (Abdomen): soft, mild distention, mild kate-incisional tenderness, incisions clean/dry/intact, well approximated with overlying Dermabond, no erythema or drainage Results & Data Vital Signs (Past 12 Hours) Vital Signs Temp Pulse Resp BP Pulse Ox 09/05/18 13:16 36.9 C 82 16 127/74 96 09/05/18 11:29 36.9 C 82 16 127/74 96 Laboratory Results 09/05/18 09/05/18 09/04/18 Range/Units 09:12 09:12 05:29 WBC 7.93 (4.8-10.8) K/uL RBC 5.16 (4.7-6.1) M/uL Hgb 13.8 L (14.0-18.0) g/dL Hct 40.3 L (42-52) % MCV 78.1 L (80-100) fL MCH 26.7 (25-34) pg MCHC 34.2 (32-36) g/dL RDW Std Deviation 36.9 (36.4-46.3) fL RDW Coeff of Delbert 13.0 (11.5-14.5) % Plt Count 187 (130-400) K/uL MPV 9.7 (7.4-10.4) fL Immature Gran % (Auto) 0.4 % Neut % (Auto) 63.7 % Lymph % (Auto) 24.5 % Carbon % (Auto) 8.1 % Eos % (Auto) 3.0 % Baso % (Auto) 0.3 % Immature Gran # (Auto) 0.03 H (0.00-0.02) K/uL Neut # (Auto) 5.06 (1.4-6.5) K/uL Lymph # (Auto) 1.94 (1.2-3.4) K/uL Carbon # (Auto) 0.64 H (0.11-0.59) K/uL Eos # (Auto) 0.24 (0-0.5) K/uL Baso # (Auto) 0.02 (0-0.2) K/uL Specimen Type Cancelled Sample Site Cancelled Patient Temperature Cancelled POC pH Cancelled POC pCO2 Cancelled POC pO2 Cancelled POC HCO3 Cancelled POC Total CO2 Cancelled POC Base Excess Cancelled O2 Sat Pulse Oximetry Cancelled ABG pH (Temp Correct) Cancelled ABG pCO2 (Temp Corrct Cancelled POC ABG pO2 at Pt Temp Cancelled POC ABG O2 Sat Cancelled Gen Test Cancelled Set Respiration Rate Cancelled O2 Delivery Device Cancelled POC O2 Rate Cancelled Minute Ventilation Cancelled Vent Mode Cancelled Vent Setting Cancelled Spontaneous Rate Cancelled FiO2 (liters per min) Cancelled POC FiO2 Cancelled Tidal Volume Cancelled Spontaneous Tidal Vol Cancelled End Tidal CO2 Cancelled PEEP Cancelled High PEEP Setting Cancelled Low PEEP Setting Cancelled Pressure Support Cancelled POC Pressure Suppt Cancelled Pressure Support Vent Cancelled Pressure High Cancelled Time High Cancelled Time Low Cancelled EPAP Cancelled IPAP Cancelled Sodium 141 (136-145) mmol/L Potassium 3.5 (3.5-5.1) mmol/L Chloride 108 H (98-107) mmol/L Carbon Dioxide 27 (21-32) mmol/L Anion Gap 6.0 (3-11) BUN 10 (7-18) mg/dl Creatinine 0.94 (0.6-1.4) mg/dl Est Cr Clr Drug Dosing 115.2 ml/min Est GFR ( Amer) 132.9 Est GFR (Non-Af Amer) 114.6 BUN/Creatinine Ratio 10.4 (10-20) Glucose 97 (70-99) mg/dl Calcium 9.2 (8.5-10.1) mg/dl
--- NOTE | 2018-09-13 13:19 | Discharge Summary ---
Date of Service September 13, 2018 Admission HPI Per Admitting Provider Corazon Hutchison is a 22 yo male who presents with a two day history of right lower quadrant abdominal pain. Pain is unchanged in location, but worsened today. He also had two episodes of emesis today. Denies fever and chills. Denies any prior similar symptoms. Denies prior surgical history. He has a history of peptic ulcers diagnosed on EGD, and states most recent treatment was in 2016. Principal Diagnosis Acute appendicitis Negative Pressure / flash pulmonary edema Discharge Data Allergies Allergy/AdvReac Type Severity Reaction Status Date / Time No Known Allergies Allergy Verified 09/03/18 12:18 Consultations 09/03/18 Critical Care Medicine 09/03/18 18:58 Consult Case Management - Discharge Planning Routine Procedures Performed Operation Date: 09/03/18 11:30 Actual Procedures p Laparoscopic Appendectomy(Not Applicable) - Wandy Adamson MD 09/03/18 Emergent re-intubation post-operatively Ordered Studies 09/03/18 11:59 CT abd pelvis IV con only Stat Hospital Course (1) Acute appendicitis: Patient was taken to operating room for laparoscopic appendectomy br Dr. Adamson from the emergency department. Patient was found to have acute appendicitis without perforation or abscess. Patient tolerated operative procedure well and was extubated and transferred to recovery. Unfortunately in PACU patient's O2 sats began to drop and he required re-intubation due to flash pulmonary edema. He was transferred to ICU from the PACU. He was kept intubated throughout the night and in the morning of post op day # 1 attempted to extubate however he had recurrence of some pulmonary edema. He was able to be extubated around 9 am on POD # 1 . His diet was advanced once he passed swallow evaluation. POD # 2 vitals stable, afebrile, O2 sats stable on room air. Tolerating diet. no n/v. pain controlled. Patient was discharged home on POD # 2 in stable condition. Advised to follow up in office in 1 week. (2) Pulmonary edema, postoperative: Required re-intubation immediately post-op and developed negative pressure/flash pulmonary edema. He was transferred to ICU from PACU for close management throughout the night and was kept intubated. Trial extubation early on POD # 1 however oxygen sats dropped and developed some pulmonary edema again. He was kept on positive pressure ventilation for a little longer and then was able to be extubated around 9 am on POD # 1 . He passed swallow study and diet was advanced. Archibald removed. Arterial line removed. Patient transferred to medical/surgical floor for post op care. He was discharged home on POD # 2 in stable condition. Total Time Total Time Spent Total Time Spent (In Minutes): 20 Discharge Plan Discharge Items Patient Disposition: Home - Self-Care Reason For Visit: ACUTE APPENDICITIS Discharge Diagnosis: Acute appendicitis Negative pressure pulmonary edema Discharge Goals: Decrease discomfort and Improve disease control Activity: Per 'Additional Instructions' section Lifting: No more than 10 pounds Non-emergency contact: Surgeon Call non-emergency contact if: you have any medication questions, your symptoms worsen, your pain is not controlled, your pain is worsening, your temperature is above 101, your wound has increased redness and your wound has increased drainage Follow-up/Referrals: Wandy dAamson MD [Physician] - PCP,NO [Primary Care Provider] - Diet: Regular Addtl Provider Instructions: Warnings: Call your surgeon promptly in case of: - Excessive bleeding - Fever greater than 101 degrees F (38.3 degrees centigrade) - Persistent nausea and vomiting - Shortness of breath or difficulty breathing - you should be evaluated in the emergency room. Be sure to let them know that you recently had to be re- intubated (on a breathing machine) for negative pressure pulmonary edema Additional Instructions: - Your incision was closed with absorbable sutures. These are below the skin and are not visible. They will dissolve over time and do not need to be removed. - Your incision was covered with Dermabond (surgical glue that holds wound edges together). Dermabond will fall off on its own (usually in 5 - 10 days). Do NOT scratch, rub, or pick at the Dermabond. This may loosen the glue before your wound is healed. You may allow water and soap to run over the Dermabond/incision, but do NOT scrub the area. Do NOT soak the area in water (swimming, soaking in a bath, etc.) until the Dermabond has fallen off. After bathing, gently blot your wound dry with a soft towel. Do NOT apply any ointment or lotion to the incision. Protect the wound from prolonged exposure to sunlight or tanning lamps while the Dermabond is in place. - You may shower in. You may allow the water and soap to run over the incisions, but do NOT scrub the incisions. Do not immerse the incisions in water for 2 weeks (ex. no baths, swimming, lakes, etc.). - No vigorous activity or lifting/pulling/pushing > 10 pounds for 4 weeks. - You should take Tylenol 650 mg for pain. This can be taken every 6 hours. If pain is not improved with Tylenol you can take Oxycodone (a script will be given to you). - You should take an over the counter stool softener (ex. Colace, Senna) daily while on narcotics. Hold for loose stool. - Do NOT drive while taking narcotic pain medications. - You should follow up in clinic in approximately 1 week. You can call [phone] to schedule an appointment. - See your primary care doctor in 1 week for a lung exam and discharge follow up. Prescriptions: New oxycodone 5 mg tablet 5 mg PO Q4H PRN (Reason: pain) Qty: 15 RF: 0 No Action No Known Home Medications RF: 0 Stand-Alone Forms: [facility] Discharge Orders: Discharge Order (Routine); Ordered 09/05/18 Ordered By: Wandy Adamson Admission Data Admit Date/Time: 09/03/18 18:22 Attending Provider: Wandy Adamson Admit Provider: Naren Iniguez Primary Care Provider: PCP,NO Other Providers: Naren Iniguez Service: Medical Other Interventions: Discharge Summary Assessment (RN) Last Done: 09/05/18 13:16 Pending Studies at Discharge: Yes Studies:: Pathology results DC Date/Time DO NOT enter until pt leaves facility: 09/05/18 14:32
== END 2018-09-05 14:32 | disposition home or self-care (01) | DRG 341 ==
LOC: ED 11:21 → ASU 14:22 → 1E 17:36 → 3N 09-04 18:31
DX: R09.02 Hypoxemia; Z87.891 Personal history of nicotine dependence; K66.0 Peritoneal adhesions (postprocedural) (postinfection); Z87.11 Personal history of peptic ulcer disease; K35.30 Acute appendicitis with localized peritonitis, without perforation or gangrene; J81.0 Acute pulmonary edema; R00.1 Bradycardia, unspecified